=== PATIENT | male | born 1950 | race Caucasian/White ===

== ENCOUNTER → 2020-08-19 | Outpatient (CLI) | payer OTHER | LOC: KOH-I 11:30 | DX: Z12.2 Encounter for screening for malignant neoplasm of respiratory organs (principal); F17.210 Nicotine dependence, cigarettes, uncomplicated; R91.8 Other nonspecific abnormal finding of lung field | CPT/HCPCS: 71271 ==

== ENCOUNTER → 2021-04-22 | Outpatient (CLI) | payer OTHER | LOC: HEART 5 07:30 | DX: R06.02 Shortness of breath (principal) | CPT/HCPCS: 78452; A9502; J2785 ==

== ENCOUNTER → 2021-05-04 | Outpatient (CLI) | payer OTHER | LOC: NM 10:40 | DX: I20.8 Other forms of angina pectoris (principal) | CPT/HCPCS: 78452; A9505 ==

== ENCOUNTER → 2021-07-20 | Outpatient (CLI) | payer OTHER | LOC: HEART 5 14:51 | DX: R06.02 Shortness of breath (principal) | CPT/HCPCS: 94060; 94729 ==

== ENCOUNTER → 2021-07-20 | Outpatient (CLI) | payer OTHER | LOC: CT 13:28 | DX: R06.02 Shortness of breath (principal); R91.8 Other nonspecific abnormal finding of lung field | CPT/HCPCS: 36415; 71260; 82565; Q9967 ==

== ENCOUNTER 2021-08-03 18:58 | Observation (INO) | payer OTHER ==
[~2021-08-03] VITALS: Ht 188 cm; Wt 105.0 kg
[2021-08-03 21:36] LABS: HEMOGLOBIN 11.9 gm/dl (14.0-17.5); RED BLOOD COUNT 3.87 M/UL (4.20-5.50); WHITE BLOOD COUNT 8.5 K/UL (4.5-11.0)
[2021-08-03 21:57] LABS: BUN/CREATININE RATIO 30 (0-10)
[2021-08-04] MEDS ORDERED: PERCOCET 10-321 EACH PO (11:15)
[2021-08-04] MEDS ORDERED: CIALIS5 MG PO (11:16)
[2021-08-04] MEDS ORDERED: SINGULAIR10 MG PO (11:16)
[2021-08-04] MEDS ORDERED: NOVOLIN 70100 UNIT/1 SC (11:16)
[2021-08-04] MEDS ORDERED: NOVOLOG MI100 UNIT/2 SC (11:17)
[2021-08-04] MEDS ORDERED: GABAPENTIN400 MG PO (11:17)
[2021-08-04] MEDS ORDERED: OMEPRAZOLE40 MG PO (11:18)
[2021-08-04] MEDS ORDERED: METFORMIN HCL1000 MG PO (11:18)
[2021-08-04] MEDS ORDERED: CARAFATE 1 GM TA1 GM PO (11:18)
[2021-08-04] MEDS ORDERED: VALSARTAN-HCTZ1 EAC1 PO (11:19)
[2021-08-04] MEDS ORDERED: LOPRESSOR 25 MG25 MG PO (11:20)
[2021-08-04] MEDS ORDERED: NAPROSYN500 MG PO (11:20)
[2021-08-04] MEDS ORDERED: FERROUS SULFAT325 M2 PO (11:20)
[2021-08-04] MEDS ORDERED: KLOR-CON M2020 MEQ PO (11:21)
[2021-08-04] MEDS ORDERED: PROCARDIA XL60 MG PO (11:21)
[2021-08-04] MEDS ORDERED: REPAGLINIDE2 MG PO (11:22)
[2021-08-04] MEDS ORDERED: REPATHA SY140 MG/1 M SQ (11:22)
[2021-08-04] MEDS ORDERED: ASPIRIN EC81 MG PO (11:23)
[2021-08-04] MEDS ORDERED: FUROSEMIDE40 MG PO (11:23)
--- NOTE | 2021-08-04 17:07 | NUR ---
08/04/21 1705 REPORT CALLED TO [facility] TO BE TRANSPORTED TO ROOM [id number]
--- NOTE | 2021-08-04 18:20 | NUR ---
requested for 3 east nurse for i and o sheet and stated to make a new one
[2021-08-05 06:44] LABS: HEMOGLOBIN 11.2 gm/dl (14.0-17.5); RED BLOOD COUNT 3.83 M/UL (4.20-5.50)
[2021-08-05 06:45] LABS: WHITE BLOOD COUNT 5.3 K/UL (4.5-11.0)
[2021-08-06 06:41] LABS: HEMOGLOBIN 10.7 gm/dl (14.0-17.5); RED BLOOD COUNT 3.61 M/UL (4.20-5.50)
[2021-08-06 06:55] LABS: BUN/CREATININE RATIO 21 (0-10)
[2021-08-06] MEDS ORDERED: OMNICEF 300 MG300 MG PO (09:53)
[2021-08-06] MEDS ORDERED: DOXYCYCLINE HY100 M2 PO (09:53)
[2021-08-06] MEDS ORDERED: FUROSEMIDE40 MG PO (09:53)
[2021-08-06] MEDS ORDERED: COZAAR25 MG PO (11:47)
[2021-08-06] MEDS ORDERED: HYDROCHLOROTH12.5 MG PO (11:48)
== END 2021-08-06 13:28 | disposition home or self-care (01) ==
LOC: ER1 18:58 → CDU 08-04 03:32 → 3 EAST 08-04 12:25 → M/S 08-04 16:49
PROVIDERS: Internal Medicine; Physician Assistant; Physician Assistant Medical; ADMIT Internal Medicine
DX: I11.0 Hypertensive heart disease with heart failure (principal); I50.23 Acute on chronic systolic (congestive) heart failure; J96.01 Acute respiratory failure with hypoxia; I25.5 Ischemic cardiomyopathy; I25.10 Atherosclerotic heart disease of native coronary artery without angina pectoris; E78.5 Hyperlipidemia, unspecified; E11.9 Type 2 diabetes mellitus without complications; R91.8 Other nonspecific abnormal finding of lung field; I08.3 Combined rheumatic disorders of mitral, aortic and tricuspid valves; I27.20 Pulmonary hypertension, unspecified; F17.210 Nicotine dependence, cigarettes, uncomplicated; Z20.822 Contact with and (suspected) exposure to COVID-19; Z95.1 Presence of aortocoronary bypass graft; Z88.8 Allergy status to other drugs, medicaments and biological substances; Z79.82 Long term (current) use of aspirin; Z79.84 Long term (current) use of oral hypoglycemic drugs; Z79.4 Long term (current) use of insulin; Z79.899 Other long term (current) drug therapy
CPT/HCPCS: ECHO; 36600; 71045; 80048; 80053; 82550; 82553; 82803; 82962; 83735; 83874; 83880; 84484; 85025; 85027; 93005; 93306; 99285; G0378; J0696; J1650; J1940; U0002

== ENCOUNTER → 2021-08-18 | Outpatient (CLI) | payer OTHER ==
[~2021-08-18] MED LIST: ASPIRIN EC81 MG PO; CARAFATE 1 GM TA1 GM PO; CIALIS5 MG PO; COZAAR25 MG PO; DOXYCYCLINE HY100 M2 PO; FERROUS SULFAT325 M2 PO; FUROSEMIDE40 MG PO; GABAPENTIN400 MG PO; HYDROCHLOROTH12.5 MG PO; KLOR-CON M2020 MEQ PO; LOPRESSOR 25 MG25 MG PO; METFORMIN HCL1000 MG PO; NAPROSYN500 MG PO; NOVOLIN 70100 UNIT/1 SC; NOVOLOG MI100 UNIT/2 SC; OMEPRAZOLE40 MG PO; OMNICEF 300 MG300 MG PO; PERCOCET 10-321 EACH PO; PROCARDIA XL60 MG PO; REPAGLINIDE2 MG PO; REPATHA SY140 MG/1 M SQ; SINGULAIR10 MG PO; VALSARTAN-HCTZ1 EAC1 PO
== END ==
LOC: LAB 13:41
PROVIDERS: Internal Medicine
DX: I50.9 Heart failure, unspecified (principal); R91.8 Other nonspecific abnormal finding of lung field
CPT/HCPCS: 36415; 71046; 80048

== ENCOUNTER → 2021-09-13 | Outpatient (CLI) | payer OTHER | LOC: KOH-I 10:39 | DX: R18.8 Other ascites (principal) | CPT/HCPCS: 74176 ==

== ENCOUNTER → 2021-10-22 | Outpatient (CLI) | payer OTHER ==
[~2021-10-22] MED LIST changes: +BUMETANIDE1 MG PO; +ENTRESTO 24 MG1 EACH PO; +JARDIANCE10 MG PO; +OMEGA 3 1,0001 EACH PO; +OSTEO BI-FLEX PO; +ZAROXOLYN/DIUL2.5 MG PO; +ZYRTEC10 MG PO
[2021-10-22 07:19] LABS: HEMOGLOBIN 13.7 gm/dl (14.0-17.5); RED BLOOD COUNT 4.51 M/UL (4.20-5.50)
== END ==
LOC: CATH 06:28
PROVIDERS: Internal Medicine Cardiovascular Disease
DX: I25.110 Atherosclerotic heart disease of native coronary artery with unstable angina pectoris (principal); I11.0 Hypertensive heart disease with heart failure; I50.22 Chronic systolic (congestive) heart failure; I42.0 Dilated cardiomyopathy; E78.5 Hyperlipidemia, unspecified; E11.9 Type 2 diabetes mellitus without complications; Z95.1 Presence of aortocoronary bypass graft; Z87.891 Personal history of nicotine dependence; Z88.8 Allergy status to other drugs, medicaments and biological substances; Z79.82 Long term (current) use of aspirin; Z79.4 Long term (current) use of insulin; Z79.899 Other long term (current) drug therapy; Z20.822 Contact with and (suspected) exposure to COVID-19
CPT/HCPCS: 36415; 71045; 80048; 82962; 85025; 85610; 93005; 99152; 99153; C1769; C1894; J1644; J2250; J3010; J7030; Q9967